=== PATIENT | male | born 1995 | race African-American/Black ===

== ENCOUNTER 2022-07-02 23:48 | Emergency (ER) | payer OTHER ==
[~2022-07-02] VITALS: Ht 188 cm; Wt 96.9 kg
[2022-07-03] MEDS ORDERED: LIDOCAINE 2% MDV 20ML VIAL SC ONE (02:10)
[2022-07-03 02:49] VITALS: BP 189/109
== END 2022-07-03 02:55 | disposition home or self-care (01) ==
LOC: M ED 23:48
DX: S91.011A Laceration without foreign body, right ankle, initial encounter (principal); W25.XXXA Contact with sharp glass, initial encounter; Y92.133 Barracks on military base as the place of occurrence of the external cause; Y93.83 Activity, rough housing and horseplay; Y99.8 Other external cause status; F17.210 Nicotine dependence, cigarettes, uncomplicated; Z98.890 Other specified postprocedural states